=== PATIENT | female | born 1940 | race Caucasian/White ===

== ENCOUNTER 2017-03-03 20:52 | Outpatient (CLI) | payer MEDICARE, OTHER | END 2017-03-03 20:53 | disposition EMS.NT | DX: Z03.89 Encounter for observation for other suspected diseases and conditions ruled out (principal); W18.39XA Other fall on same level, initial encounter; Y92.009 Unspecified place in unspecified non-institutional (private) residence as the place of occurrence of the external cause ==

== ENCOUNTER 2017-06-19 09:21 | Outpatient (CLI) | payer MEDICARE, OTHER | END 2017-06-19 09:22 | disposition short-term general hospital (02) | LOC: EMS 09:21 | PROVIDERS: ATTEND Surgery | DX: R53.1 Weakness (principal); R10.9 Unspecified abdominal pain | CPT/HCPCS: A0425; A0427 ==

== ENCOUNTER 2017-08-20 12:25 | Outpatient (CLI) | payer MEDICARE, OTHER | END 2017-08-20 12:26 | disposition EMS.NT | LOC: EMS 12:25 | PROVIDERS: ATTEND Surgery | DX: Z03.89 Encounter for observation for other suspected diseases and conditions ruled out (principal); W18.39XA Other fall on same level, initial encounter; Y92.002 Bathroom of unspecified non-institutional (private) residence as the place of occurrence of the external cause ==

== ENCOUNTER 2018-12-06 08:00 | Outpatient (CLI) | payer MEDICARE, OTHER ==
[2018-12-06 19:00] LABS: BASOPHILS % (AUTO) 0.5 %; EOSINOPHILS % (AUTO) 0.6 %; HGB - HEMOGLOBIN 13.7 g/dL (12.0-16.0); LYMPHOCYTES # (AUTO) 1.7 10^3/uL (1.5-3.5); LYMPHOCYTES % (AUTO) 31.5 %; MEAN CORPUSCULAR HEMOGLOBIN 29.9 pg (27.0-31.0); MEAN CORPUSCULAR HGB CONC 33.1 g/dL (32.0-36.0); MEAN CORPUSCULAR VOLUME 90.4 fL (81.0-99.0); MEAN PLATELET VOLUME 8.6 fL (7.9-10.8); MONOCYTES # (AUTO) 0.5 10^3/uL (0.0-1.0); MONOCYTES % (AUTO) 9.8 %; NEUTROPHILS # (AUTO) 3.2 10^3/uL (1.5-6.6); NEUTROPHILS % (AUTO) 57.6 %; PLT - PLATELET COUNT 270 10^3/uL (130-450); RED BLOOD COUNT 4.59 10^6/uL (4.20-5.40); RED CELL DISTRIBUTION WIDTH 13.3 % (12.0-15.0); WHITE BLOOD COUNT 5.5 x10^3/uL (4.8-10.8)
[2018-12-06 19:28] LABS: ALBUMIN/GLOBULIN RATIO 1.1 (1.0-2.2); ALKALINE PHOSPHATASE 66 IU/L (42-121); ALT ALANINE AMINOTRANSFERASE 14 IU/L (10-60); AST ASPARTATE AMINOTRANSFERASE 20 IU/L (10-42); BILIRUBIN,TOTAL 0.7 mg/dL (0.2-1.0); BUN - BLOOD UREA NITROGEN 17 mg/dL (6-20); CALCIUM 8.8 mg/dL (8.5-10.3); CARBON DIOXIDE - CO2 24 mmol/L (21-32); CHLORIDE 101 mmol/L (101-111); CHOL/HDL RATIO 4.7 (<4.4); CHOLESTEROL 221 mg/dL; GFR - MDRD 53 (>89); GLUCOSE 85 mg/dL (70-100); HDL CHOLESTEROL 47 mg/dL; LDL CHOLESTEROL,CALCULATED 148 mg/dL; LDL/HDL RATIO 3.1 (<4.4); SODIUM 133 mmol/L (135-145); TOTAL PROTEIN 7.7 g/dL (6.7-8.2); VLDL CHOLESTEROL 26 mg/dL
== END 2018-12-06 23:59 | disposition home or self-care (01) ==
LOC: LAB.WCP 08:00
PROVIDERS: ATTEND Family Medicine
DX: I10 Essential (primary) hypertension (principal); E78.5 Hyperlipidemia, unspecified
CPT/HCPCS: 36415; 80053; 80061; 83721; 85025

== ENCOUNTER 2018-12-06 14:59 | Outpatient (CLI) | payer MEDICARE, OTHER | END 2018-12-06 15:00 | disposition home or self-care (01) | LOC: DI.WCP 14:59 | PROVIDERS: ATTEND Family Medicine | DX: Z53.9 Procedure and treatment not carried out, unspecified reason (principal) ==

== ENCOUNTER 2018-12-06 15:02 | Outpatient (CLI) | payer MEDICARE, OTHER ==
--- NOTE | 2018-12-07 16:51 | XRAY Report ---
Reason: BILATERAL HIP PAIN Procedure Date: 12/06/2018 Accession Number: [id number] / [id number] Procedure: WCP - Pelvis 1 View CPT Code: FULL RESULT: EXAM: PELVIS RADIOGRAPHY EXAM DATE: 12/06/2018 03:40 PM. CLINICAL HISTORY: Bilateral hip pain. Bilateral groin pain. COMPARISON: None. TECHNIQUE: 1 view. FINDINGS: Demineralized bones. This limits evaluation for a nondisplaced acute fracture. No acute fracture is seen. 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 No dislocation. Femoral vascular calcification. Right lower quadrant surgical clips. IMPRESSION: Mild bilateral hip degenerative joint disease. No dislocation. No evidence for an acute fracture. If there is high clinical suspicion for an acute fracture, consider an MR or CT to further evaluate. See above. RADIA
== END 2018-12-06 15:03 | disposition home or self-care (01) ==
LOC: DI.WCP 15:02
PROVIDERS: ATTEND Family Medicine
DX: M16.0 Bilateral primary osteoarthritis of hip (principal); I10 Essential (primary) hypertension; E78.5 Hyperlipidemia, unspecified
CPT/HCPCS: 36415; 72170; 80053; 80061; 83721; 85025

== ENCOUNTER 2019-04-20 08:00 | Outpatient (CLI) | payer MEDICARE, OTHER | END 2019-04-20 23:59 | disposition home or self-care (01) | LOC: LAB.WCP 08:00 | PROVIDERS: ATTEND Family Medicine | DX: I10 Essential (primary) hypertension (principal) | CPT/HCPCS: 36415; 84443 ==

== ENCOUNTER 2019-07-02 01:56 | Outpatient (CLI) | payer MEDICARE, OTHER | END 2019-07-02 01:57 | disposition short-term general hospital (02) | LOC: EMS 01:56 | PROVIDERS: ATTEND Surgery | DX: M25.571 Pain in right ankle and joints of right foot (principal); X50.0XXA Overexertion from strenuous movement or load, initial encounter; Y92.009 Unspecified place in unspecified non-institutional (private) residence as the place of occurrence of the external cause ==

== ENCOUNTER 2019-07-20 23:21 | Outpatient (CLI) | payer MEDICARE, OTHER | END 2019-07-20 23:22 | disposition critical access hospital (66) | LOC: EMS 23:21 | PROVIDERS: ATTEND Surgery | DX: M54.9 Dorsalgia, unspecified (principal); R11.10 Vomiting, unspecified; W05.0XXA Fall from non-moving wheelchair, initial encounter; Y92.099 Unspecified place in other non-institutional residence as the place of occurrence of the external cause | CPT/HCPCS: A0425; A0429 ==

== ENCOUNTER 2019-07-20 23:38 | Emergency (ER) | payer MEDICARE, OTHER ==
--- NOTE | 2019-07-20 23:56 | ED Physician Documentation ---
History of Present Illness - Stated complaint Stated Complaint: FELL - Chief complaint Chief Complaint: Trauma Ch/Bk - History obtained from History obtained from: Patient - History of Present Illness Timing: Today - Additonal information Additional information: This is an 78-year-old woman who just moved into an assisted living today around 2 PM. She went in there because she had fallen couple weeks ago and broken her right ankle had to have surgery on it and her daughter was having difficulty caring for her at home. She is been in a wheelchair since 2002. She has a history of MS. Evans at the assisted living she slid out of her wheelchair and landed on her butt on the floor. She says she sat there for about an hour before anybody came to check on her and they did not know what to do with her so they left her laying there another half hour and came back with a whole team of people and still did not know what to do with her so they called the provider service representative. By that time she was having so much pain in her back that she was nauseous and vomited on the route here. She says she is had back problems for years with lots of back pain. Is the only thing that hurts now she did not hit her head she did not pass out. She does have some soreness across her rib cage from on the lifting and pulling since she has had the surgery over the past couple of w eeks. She Wears a pad and is uncertain if there was actual urinary incontinence. PD PAST MEDICAL HISTORY - Allergies Allergies/Adverse Reactions: Allergies Allergy/AdvReac Type Severity Reaction Status Date / Time No Known Drug Allergies Allergy Verified 07/20/19 23:50 PD ED PE NORMAL - Vitals Vital signs reviewed: Yes - General General: Alert and oriented X 3, No acute distress, Well developed/nourished - HEENT HEENT: Atraumatic, PERRL, Moist mucous membranes - Cardiac Cardiac: RRR, No murmur - Respiratory Respiratory: No respiratory distress, Clear bilaterally - Abdomen Abdomen: Normal bowel sounds, Soft, Non tender - Back Back: No spinal TTP - Derm Derm: Normal color, Warm and dry, Other (There is bruising and slight abrasion to the left back just above the rib cage margin. There is no palpable step-off of the ribs no point tenderness and no crepitus or crepitance.) - Extremities Extremities: Other (The right ankle is wrapped in a hard cast. Does not have any edema in the toes she is able to wiggle her toes and sensation is intact to light touch. The left leg has a flexion contracture at the ankle. There is a palpable dorsalis pedis pulse and she is able to wiggle her toes. She is able to move both of her lower extremities and sensation is intact. 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 and biceps.) - Neuro Neuro: Alert and oriented X 3, chief engineer research 2-12 intact, No sensory deficit, Normal speech - Psych Psych: Normal mood, Normal affect Results - Vitals Vitals: Vital Signs - 24 hr 07/20/19 07/21/19 23:45 00:30 Temperature 37 C Heart Rate 96 91 Respiratory 17 16 Rate Blood Pressure 170/85 H 123/58 L O2 Saturation 97 94 Oxygen O2 Source Room air - Rads (name of study) L spine Radiology: See rad report (Neg acute fracture) PD MEDICAL DECISION MAKING - ED course Complexity details: reviewed results, d/w patient ED course: Patient does have some scoliosis in the lumbar spine but there is no evidence of any acute fracture. She is sore right where the abrasion is and she thinks she may have hit the foot pedal on her wheelchair as she slid down. She is not feeling short of breath and I did not feel that imaging of that region was warranted. She is declined pain medications here even something as simple as Tylenol. She will be discharged back to the assisted living. Departure - Departure Disposition: 01 Home, Self Care Clinical Impression: Contusion of left chest wall Qualifiers: Encounter type: initial encounter Qualified Code(s): S20.212A - Contusion of left front wall of thorax, initial encounter Condition: Good Instructions: ED Contusion Chest Wall Follow-Up: Kaiser Martinez DO [Primary Care Provider] - Comments: May apply ice to the area. Take Tylenol if needed for pain. Follow-up if you are feeling short of breath or other problems arise.
[2019-07-21 00:51] VITALS: BP 123/58
--- NOTE | 2019-07-21 01:33 | XRAY Report ---
Reason: fall; back pain Procedure Date: 07/21/2019 Accession Number: [id number] / [id number] Procedure: XR - Lumbar Spine 2 View CPT Code: Final Report FULL RESULT: EXAM: LUMBOSACRAL SPINE RADIOGRAPHY EXAM DATE: 07/21/2019 01:06 AM. CLINICAL HISTORY: Fall; back pain. COMPARISONS: None. TECHNIQUE: 3 views. FINDINGS: Alignment: Straightening of the lumbar spine with loss of the normal lordosis. No spondylolisthesis. Lumbar levoscoliosis. Bones: Five [id number] lumbar vertebral bodies are present. There is no evidence of acute fracture. Multilevel osteophytes are seen. No lytic or blastic lesions are seen. Disks: The disk spaces are maintained. Facets: Degenerative changes are seen at L3-L4, L4-L5, and L5-S1. Sacroiliac Joints: Narrowed. Soft Tissues: Normal. The visible bowel gas pattern is normal. Multiple phleboliths are seen. Calcifications are present in the upper left abdomen. Surgical clips are seen in the lower right abdomen. IMPRESSION: Degenerative changes. No evidence of acute fracture or subluxation. RADIA
== END 2019-07-21 09:01 | disposition home or self-care (01) ==
LOC: EDUNIT# → EDBD → ED 23:38
DX: S20.212A Contusion of left front wall of thorax, initial encounter (principal); S20.412A Abrasion of left back wall of thorax, initial encounter; W05.0XXA Fall from non-moving wheelchair, initial encounter; Y92.099 Unspecified place in other non-institutional residence as the place of occurrence of the external cause; M51.36 Other intervertebral disc degeneration, lumbar region; M41.86 Other forms of scoliosis, lumbar region; G35 Multiple sclerosis
CPT/HCPCS: 72100; 99281; 99283

== ENCOUNTER 2019-09-22 18:08 | Outpatient (CLI) | payer MEDICARE, OTHER | END 2019-09-22 18:09 | disposition EMS.NT | LOC: EMS 18:08 | PROVIDERS: ATTEND Surgery | DX: R53.1 Weakness (principal) ==

== ENCOUNTER 2019-09-22 21:06 | Outpatient (CLI) | payer MEDICARE, OTHER | END 2019-09-22 21:07 | disposition short-term general hospital (02) | LOC: EMS 21:06 | PROVIDERS: ATTEND Surgery | DX: R53.1 Weakness (principal); R50.9 Fever, unspecified | CPT/HCPCS: A0425; A0429 ==

== ENCOUNTER 2019-11-24 19:00 | Outpatient (CLI) | payer MEDICARE, OTHER | END 2019-11-24 23:59 | disposition short-term general hospital (02) | LOC: EMS 19:00 | PROVIDERS: ATTEND Surgery | DX: R55 Syncope and collapse (principal); R19.8 Other specified symptoms and signs involving the digestive system and abdomen; R20.2 Paresthesia of skin; R11.0 Nausea | CPT/HCPCS: A0425; A0427 ==

== ENCOUNTER 2019-12-22 15:24 | Outpatient (CLI) | payer MEDICARE, OTHER | END 2019-12-22 15:25 | disposition EMS.NT | LOC: EMS 15:24 | PROVIDERS: ATTEND Surgery | DX: R42 Dizziness and giddiness (principal); R53.1 Weakness ==

== ENCOUNTER 2020-03-09 12:20 | Outpatient (CLI) | payer MEDICARE, OTHER | END 2020-03-09 12:21 | disposition short-term general hospital (02) | LOC: EMS 12:20 | PROVIDERS: ATTEND Surgery | DX: K62.89 Other specified diseases of anus and rectum (principal) | CPT/HCPCS: A0425; A0429 ==

== ENCOUNTER 2020-07-26 14:17 | Outpatient (CLI) | payer MEDICARE, OTHER | END 2020-07-26 23:59 | disposition short-term general hospital (02) | LOC: EMS 14:17 | PROVIDERS: ATTEND Surgery | DX: R53.83 Other fatigue (principal); R11.2 Nausea with vomiting, unspecified | CPT/HCPCS: A0425; A0429 ==

== ENCOUNTER 2020-11-13 15:33 | Outpatient (CLI) | payer MEDICARE, OTHER | END 2020-11-13 15:34 | disposition EMS.NT | LOC: EMS 15:33 | DX: R53.1 Weakness (principal); R42 Dizziness and giddiness ==

== ENCOUNTER 2020-12-06 17:57 | Outpatient (CLI) | payer MEDICARE, OTHER | END 2020-12-06 17:58 | disposition short-term general hospital (02) | LOC: EMS 17:57 | DX: R19.7 Diarrhea, unspecified (principal) | CPT/HCPCS: A0425; A0429 ==

== ENCOUNTER 2020-12-17 11:22 | Outpatient (CLI) | payer MEDICARE, OTHER | END 2020-12-17 11:23 | disposition short-term general hospital (02) | LOC: EMS 11:22 | DX: M54.5 Low back pain (principal); K62.89 Other specified diseases of anus and rectum | CPT/HCPCS: A0425; A0429 ==

== ENCOUNTER 2021-05-21 05:39 | Outpatient (CLI) | payer MEDICARE, OTHER | END 2021-05-21 05:40 | disposition short-term general hospital (02) | LOC: EMS 05:39 | DX: T83.021A Displacement of indwelling urethral catheter, initial encounter (principal); R10.32 Left lower quadrant pain | CPT/HCPCS: A0425; A0429 ==

== ENCOUNTER 2021-09-11 08:00 | Outpatient (CLI) | payer MEDICARE, OTHER ==
[2021-09-11 22:46] LABS: BACTERIAL VAGINOSIS DNA NEGATIVE (NEGATIVE); CANDIDA GLABRATA DNA POSITIVE (NEGATIVE); CANDIDA GROUP DNA NEGATIVE (NEGATIVE); CANDIDA KRUSEI DNA NEGATIVE (NEGATIVE); TRICHOMONAS VAGINALIS DNA NEGATIVE (NEGATIVE)
== END 2021-09-11 23:59 ==
LOC: LAB 08:00
PROVIDERS: ATTEND Physician Assistant
DX: N89.8 Other specified noninflammatory disorders of vagina (principal)
CPT/HCPCS: 87661; 87801

== ENCOUNTER 2021-09-19 08:00 | Outpatient (CLI) | payer MEDICARE, OTHER ==
[2021-09-19 17:47] LABS: BILIRUBIN,URINE NEGATIVE (NEGATIVE); GLUCOSE, URINE (UA) NEGATIVE (NEGATIVE); KETONES,URINE (UA) NEGATIVE (NEGATIVE); LEUKOCYTE ESTERASE, URINE LARGE (NEGATIVE); NITRITE,URINE POSITIVE (NEGATIVE); OCCULT BLOOD,URINE TRACE-INTA (NEGATIVE); PROTEIN,URINE NEGATIVE (NEGATIVE); UROBILINOGEN,URINE 0.2 (NORMAL) E.U./dL (NORMAL)
[2021-09-19 17:54] LABS: BASOPHILS % (AUTO) 0.7 %; CLARITY,URINE CLOUDY (CLEAR); EOSINOPHILS # (AUTO) 0.1 10^3/uL (0.0-0.7); HCT - HEMATOCRIT 37.9 % (37.0-47.0); HGB - HEMOGLOBIN 11.8 g/dL (12.0-16.0); LYMPHOCYTES % (AUTO) 36.2 %; MEAN CORPUSCULAR HEMOGLOBIN 28.8 pg (27.0-31.0); MEAN CORPUSCULAR HGB CONC 31.1 g/dL (32.0-36.0); MEAN CORPUSCULAR VOLUME 92.4 fL (81.0-99.0); MEAN PLATELET VOLUME 11.1 fL (7.9-10.8); MONOCYTES # (AUTO) 0.6 10^3/uL (0.0-1.0); MONOCYTES % (AUTO) 9.8 %; NEUTROPHILS # (AUTO) 2.9 10^3/uL (1.5-6.6); NEUTROPHILS % (AUTO) 51.1 %; PLT - PLATELET COUNT 255 10^3/uL (130-450); RED CELL DISTRIBUTION WIDTH 14.2 % (12.0-15.0); WHITE BLOOD COUNT 5.6 x10^3/uL (4.8-10.8)
[2021-09-19 17:59] LABS: ALBUMIN 3.6 g/dL (3.2-5.5); ALBUMIN/GLOBULIN RATIO 0.9 (1.0-2.2); BILIRUBIN,TOTAL 0.4 mg/dL (0.2-1.0); CALCIUM 9.4 mg/dL (8.5-10.3); POTASSIUM 3.9 mmol/L (3.5-5.0); TOTAL PROTEIN 7.5 g/dL (6.7-8.2)
[2021-09-19 18:10] LABS: BACTERIA,URINE Many /HPF (None Seen); CASTS, URINE 3-5 Fine Granular /LPF; RBC,URINE None Seen /HPF (0-5); SQUAMOUS EPITHELIAL CELL,UR MANY Squamous (<= Few); WBC,URINE >25 /HPF (0-5)
== END 2021-09-19 23:59 | disposition home or self-care (01) ==
LOC: LAB.WCP 08:00
PROVIDERS: ATTEND Physician Assistant
DX: R60.0 Localized edema (principal)
CPT/HCPCS: 36415; 80053; 81001; 81003; 83880; 85025; 87086

== ENCOUNTER 2021-09-24 08:01 | Outpatient (CLI) | payer MEDICARE, OTHER | END 2021-09-24 08:02 | disposition short-term general hospital (02) | LOC: EMS 08:01 | DX: T83.021A Displacement of indwelling urethral catheter, initial encounter (principal); R32 Unspecified urinary incontinence; R10.2 Pelvic and perineal pain | CPT/HCPCS: A0425; A0429 ==

== ENCOUNTER 2021-10-17 15:53 | Outpatient (CLI) | payer MEDICARE, OTHER | END 2021-10-17 15:54 | disposition short-term general hospital (02) | LOC: EMS 15:53 | DX: R53.1 Weakness (principal); R41.82 Altered mental status, unspecified; T68.XXXA Hypothermia, initial encounter; X31.XXXA Exposure to excessive natural cold, initial encounter | CPT/HCPCS: A0425; A0429 ==

== ENCOUNTER 2021-10-21 21:03 | Outpatient (CLI) | payer MEDICARE, OTHER | END 2021-10-21 21:04 | disposition short-term general hospital (02) | LOC: EMS 21:03 | DX: R41.0 Disorientation, unspecified (principal); R09.89 Other specified symptoms and signs involving the circulatory and respiratory systems; R11.2 Nausea with vomiting, unspecified; R19.7 Diarrhea, unspecified | CPT/HCPCS: A0425; A0427 ==

== ENCOUNTER 2021-10-30 16:08 | Outpatient (CLI) | payer MEDICARE, OTHER ==
[2021-10-30 16:34] LABS: BASOPHILS % (AUTO) 0.5 %; EOSINOPHILS # (AUTO) 0.1 10^3/uL (0.0-0.7); HCT - HEMATOCRIT 36.5 % (37.0-47.0); HGB - HEMOGLOBIN 11.6 g/dL (12.0-16.0); LYMPHOCYTES # (AUTO) 2.1 10^3/uL (1.5-3.5); LYMPHOCYTES % (AUTO) 24.7 %; MEAN CORPUSCULAR HEMOGLOBIN 28.9 pg (27.0-31.0); MEAN CORPUSCULAR HGB CONC 31.8 g/dL (32.0-36.0); MEAN CORPUSCULAR VOLUME 90.8 fL (81.0-99.0); MEAN PLATELET VOLUME 9.9 fL (7.9-10.8); MONOCYTES # (AUTO) 0.7 10^3/uL (0.0-1.0); MONOCYTES % (AUTO) 7.6 %; NEUTROPHILS # (AUTO) 5.7 10^3/uL (1.5-6.6); NEUTROPHILS % (AUTO) 65.9 %; PLT - PLATELET COUNT 327 10^3/uL (130-450); RED BLOOD COUNT 4.02 10^6/uL (4.20-5.40); WHITE BLOOD COUNT 8.6 x10^3/uL (4.8-10.8)
[2021-10-30 16:48] LABS: BILIRUBIN,TOTAL 0.5 mg/dL (0.2-1.0); CALCIUM 9.3 mg/dL (8.5-10.3); POTASSIUM 3.8 mmol/L (3.5-5.0); TOTAL PROTEIN 7.9 g/dL (6.7-8.2)
--- NOTE | 2021-10-30 17:54 | Ultrasound Report ---
PROCEDURE: Duplex Ext Veins Right INDICATIONS: + D DIMER TECHNIQUE: Real-time imaging, as well as color and pulse Doppler interrogation, were performed of the lower extr emity deep veins from the inguinal ligament to the popliteal fossa. COMPARISON: None. FINDINGS: The deep veins are normally compressible, and free of intraluminal thrombus. Color and pu lse Doppler demonstrate normal phasic intraluminal flow. There is normal augmentation response to di stal compression maneuver. The exam is somewhat limited due to inability of the patient to cooperate . IMPRESSION: No DVT in the right lower extremity. Reviewed by: Fuad Roca on 10/30/2021 5:52 PM PST Approved by: Fuad Roca on 10/30/2021 5:52 PM PST Station ID: [id number]
== END 2021-10-30 16:09 | disposition home or self-care (01) ==
LOC: DI 16:08
PROVIDERS: ATTEND Nurse Practitioner
DX: L03.115 Cellulitis of right lower limb (principal); R79.1 Abnormal coagulation profile
CPT/HCPCS: 36415; 80053; 85025

== ENCOUNTER 2021-12-13 10:06 | Outpatient (CLI) | payer MEDICARE, OTHER | END 2021-12-13 10:07 | disposition critical access hospital (66) | LOC: EMS 10:06 | DX: T83.038A Leakage of other urinary catheter, initial encounter (principal); R10.30 Lower abdominal pain, unspecified | CPT/HCPCS: A0425; A0429 ==

== ENCOUNTER 2021-12-13 10:38 | Emergency (ER) | payer MEDICARE, OTHER ==
--- NOTE | 2021-12-13 10:48 | ED Physician Documentation ---
PD HPI FEMALE - Stated complaint Stated Complaint: CATH ISSUE - History obtained from History obtained from: Patient, EMS, Caregiver - History of Present Illness Timing - onset: Last night (Patient accidentally ran over her catheter tubing with walker and has had pain lower abd/pelvic area since. Still having some draining of urine.) Timing - duration: Hours Timing - details: Abrupt onset, Still present Associated symptoms: Other (Pelvic and lower abdominal fullness and pain and diminished drainage from her Hinojosa.). No: Fever Similar symptoms before: Has not had sx before Review of Systems Constitutional: denies: Fever Nose: denies: Rhinorrhea / runny nose, Congestion Throat: denies: Sore throat Respiratory: denies: Cough GI: denies: Vomiting, Diarrhea PD PAST MEDICAL HISTORY - Present Medications Home Medications: Ambulatory Orders Medication Instructions Recorded Confirmed Citalopram Hydrobromide 20 mg PO DAILY 02/22/20 02/22/20 [Citalopram HBr] Omeprazole 20 mg PO DAILY 02/22/20 02/22/20 lisinopriL [Lisinopril] 20 mg PO DAILY 02/22/20 02/22/20 - Allergies Allergies/Adverse Reactions: Allergies Allergy/AdvReac Type Severity Reaction Status Date / Time No Known Drug Allergies Allergy Verified 12/13/21 10:50 PD ED PE NORMAL - Vitals Vital signs reviewed: Yes - General General: Alert and oriented X 3, Well developed/nourished - Abdomen Abdomen: Normal bowel sounds, Soft, Other (Some fullness in the suprapubic area. Hinojosa catheter is in place with only a small amount of urine in the bag attac hed.) - Back Back: No CVA TTP - Derm Derm: Normal color, Warm and dry Results - Vitals Vitals: Vital Signs - 24 hr 12/13/21 10:50 Temperature 37.1 C Heart Rate 91 Respiratory 18 Rate Blood Pressure 161/83 H O2 Saturation 96 Oxygen O2 Source Room air PD MEDICAL DECISION MAKING - ED course Complexity details: considered differential (Hinojosa balloon was deflated and advanced back and reinflated with improved drainage of urine and decrease in her symptoms. It apparently was partly dislodged in the urethra.), d/w patient Departure - Departure Disposition: 01 Home, Self Care Clinical Impression: Hinojosa catheter problem Qualifiers: Encounter type: initial encounter Qualified Code(s): T83.9XXA - Unspecified complication of genitourinary prosthetic device, implant and graft, initial encounter Condition: Stable Record reviewed to determine appropriate education?: Yes Comments: The Hinojosa catheter did seem to be slightly pulled out. It is now in proper location and draining appropriately. Continue her other usual medications and Hinojosa catheter care. Discharge Date/Time: 12/13/21 12:57
[2021-12-13 10:56] VITALS: BP 161/83
--- OUTSIDE RECORDS SUMMARY | 2021-12-13 11:04 | EXTERNAL MEDICAL SUMMARY RPT | Continuity of Care Document ---
:1940 Author Organization [facility] Address [address] [place] [address] Phone Care Team Providers Name Role Phone Barberidt Unavailable Unavailable Allergies No information. Encounters No information. Medications No information. Problems date description facility [id number] Syncope and collapse [facility] [id number] [facility] collapse [facility] Procedures date description facility [id number] [facility] [id number] [facility] 20211022 [facility] 20211022 [facility] [id number] [facility] [id number] [facility] [id number] [facility] [id number] [facility] [id number] [facility] Results No information. Vital Signs date measurement value source 20210924 weight_standard 65.77 lb 20210924 weight_metric 29.83 kg 20210924 temperature_standard 97.8 F 20210924 temperature_metric 36.56 C 20210924 respiration_rate 19 /min 20210924 height_standard 65 in 20210924 height_metric 165.1 cm 20210924 heart_rate 95 /min 20210924 BP_systolic 143 mm[Hg] 20210924 BP_diastolic 66 mm[Hg] 20210924 BMI 24.1 kg/m2 20210930 heart_rate 81 /min 20210930 BP_systolic 115 mm[Hg] 20210930 BP_diastolic 54 mm[Hg] 20211017 weight_standard 59.8 lb 20211017 weight_metric 27.12 kg 20211017 temperature_standard 97.6 F 20211017 temperature_metric 36.44 C 20211017 respiration_rate 18 /min 20211017 height_standard 61 in 20211017 height_metric 154.94 cm 20211017 heart_rate 91 /min 20211017 BP_systolic 149 mm[Hg] 20211017 BP_diastolic 74 mm[Hg] 20211017 BMI 26.6 kg/m2 20211018 temperature_standard 97.4 F 20211018 temperature_metric 36.33 C 20211018 respiration_rate 18 /min 20211018 heart_rate 90 /min 20211018 BP_systolic 140 mm[Hg] 20211018 BP_diastolic 67 mm[Hg] 20211021 weight_standard 58.97 lb 20211021 weight_metric 26.75 kg 20211021 temperature_standard 97.3 F 20211021 temperature_metric 36.28 C 20211021 BP_systolic 113 mm[Hg] 20211021 BP_diastolic 69 mm[Hg] 20211022 weight_standard 59.5 lb 20211022 weight_metric 26.99 kg 20211022 respiration_rate 30 /min 20211022 height_standard 61 in 20211022 height_metric 154.94 cm 20211022 heart_rate 97 /min 20211023 temperature_standard 97 F 20211023 temperature_metric 36.11 C 20211023 respiration_rate 16 /min 20211023 heart_rate 99 /min 20211023 BP_systolic 120 mm[Hg] 20211023 BP_diastolic 56 mm[Hg] 20211104 weight_standard 66.68 lb 20211104 weight_metric 30.24 kg 20211104 temperature_standard 96.2 F 20211104 temperature_metric 35.67 C 20211104 respiration_rate 18 /min 20211104 height_standard 60 in 20211104 height_metric 152.4 cm 20211104 heart_rate 98 /min 20211104 BP_systolic 145 mm[Hg] 20211104 BP_diastolic 80 mm[Hg] 20211104 BMI 28.7 kg/m2
== END 2021-12-13 12:57 | disposition home or self-care (01) ==
LOC: EDUNIT# → ED 10:38
DX: T83.021A Displacement of indwelling urethral catheter, initial encounter (principal)
CPT/HCPCS: 51798; 99282; 99283

== ENCOUNTER 2022-01-22 13:58 | Outpatient (CLI) | payer MEDICARE, OTHER | END 2022-01-22 13:59 | disposition short-term general hospital (02) | LOC: EMS 13:58 | DX: R19.7 Diarrhea, unspecified (principal) | CPT/HCPCS: A0425; A0429 ==

== ENCOUNTER 2022-02-24 22:23 | Outpatient (CLI) | payer MEDICARE, OTHER | END 2022-02-24 22:24 | disposition EMS.NT | LOC: EMS 22:23 | DX: Z03.89 Encounter for observation for other suspected diseases and conditions ruled out (principal) ==

== ENCOUNTER 2022-02-28 12:02 | Outpatient (CLI) | payer MEDICARE, OTHER | END 2022-02-28 12:03 | disposition EMS.NT | LOC: EMS 12:02 | DX: K62.89 Other specified diseases of anus and rectum (principal) ==

== ENCOUNTER 2022-03-04 11:00 | Outpatient (CLI) | payer MEDICARE, OTHER | END 2022-03-04 11:01 | disposition short-term general hospital (02) | LOC: EMS 11:00 | DX: M25.512 Pain in left shoulder (principal); W18.39XA Other fall on same level, initial encounter; Y92.009 Unspecified place in unspecified non-institutional (private) residence as the place of occurrence of the external cause | CPT/HCPCS: A0425; A0429 ==

== ENCOUNTER 2022-06-08 01:14 | Outpatient (CLI) | payer MEDICARE, OTHER | END 2022-06-08 01:15 | disposition EMS.NT | LOC: EMS 01:14 | DX: Z03.89 Encounter for observation for other suspected diseases and conditions ruled out (principal) ==